=== PATIENT | female | born 1970 ===

== ENCOUNTER 2018-02-04 20:06 | Emergency (ER) | payer OTHER ==
[~2018-02-04] VITALS: Ht 144.8 cm; Wt 45.4 kg
[~2018-02-04 20:06] MED LIST: GLUMETZA1000 MG; NORVASC10 MG; VASOTEC20 M1
[2018-02-04] MEDS ORDERED: ATIVAN0.5 MG (20:41)
[2018-02-04] MEDS ORDERED: LOSARTAN POTASS50 MG (20:41)
== END 2018-02-04 23:01 | disposition home or self-care (01) ==
LOC: ER 20:06
DX: S40.012A Contusion of left shoulder, initial encounter (principal); S70.02XA Contusion of left hip, initial encounter; W18.39XA Other fall on same level, initial encounter; Y93.89 Activity, other specified; Y92.89 Other specified places as the place of occurrence of the external cause; Y99.8 Other external cause status

== ENCOUNTER → 2018-04-17 | Emergency (ER) | payer OTHER ==
[~2018-04-17] VITALS: Ht 144.8 cm; Wt 45.4 kg
[~2018-04-17] MED LIST changes: +ATIVAN0.5 MG; +LOSARTAN POTASS50 MG
== END | disposition left against medical advice (07) ==
LOC: ER 22:30
DX: R30.0 Dysuria (principal); L29.2 Pruritus vulvae; E11.9 Type 2 diabetes mellitus without complications